=== PATIENT | female | born 1995 | race Caucasian/White ===

== ENCOUNTER 2017-10-26 16:55 | Emergency (ER) | payer OTHER ==
[~2017-10-26] VITALS: Ht 167.6 cm; Wt 46.3 kg
[2017-10-26 16:55] VITALS: BP_SYST 115
[2017-10-26] MEDS ORDERED: LORazepam 1 MG TABLET PO ONE (17:30)
[2017-10-26 18:00] VITALS: BP_SYST 115
== END 2017-10-26 18:00 | disposition home or self-care (01) ==
LOC: SED 16:55
DX: F41.0 Panic disorder [episodic paroxysmal anxiety] (principal)
CPT/HCPCS: 99284